=== PATIENT | male | born 1960 | race Caucasian/White ===

== ENCOUNTER → 2020-08-27 12:51 | Outpatient (CLI) | payer MEDICARE, SELFPAY ==
[2020-05-31 05:42] VITALS: BMI 26.2
--- NOTE | 2020-08-27 13:20 | RAD_ITS ---
STUDY: X-RAY CHEST REASON FOR EXAM: Male, 60 years old. SOB, hypoxia TECHNIQUE: PA and lateral views of the chest. COMPARISON: None. FINDINGS: Diffuse increased interstitial markings with areas of cartilage in both lower lobes suggestive of diffuse interstitial fibrosis and honeycombing. There is no demonstrated pleural abnormality. Sternal cerclage wires are present from a prior sternotomy. The patient is status post mitral valve replacement. A left-sided dual-chamber pacemaker is seen. Normal mediastinum and bria. Normal visualized pulmonary arteries. Normal visualized aortic arch and descending thoracic aorta. There are diffuse degenerative changes of the visualized thoracic spine. There is degenerative osteoarthritis of the bilateral shoulders. There is no demonstrated abnormality of the visualized soft tissue structures of the upper abdomen. RAD/Chest PA and Lateral IMPRESSION: Findings suggestive of a chronic interstitial fibrosis more prominent in the lower lobes. Electronically Signed: Graham Green, at 15:53 EDT , Service support ,
[2020-08-27 13:39] LABS: Hematocrit 52.3 % (40-54); Hemoglobin 16.1 g/dL (13.0-16.5); Mean Corp Hgb Conc 30.8 g/dL (32-36); Mean Corpuscular Hgb 30.6 pg (27.0-32.0); Mean Corpuscular Volume 99.2 fL (80-94); Mean Platelet Vol. 10.6 fl (6.2-12.0); Platelet Count 141 K/mm3 (150-450); RBC Distribution Width CV 14.5 % (11.6-14.6); RBC Distribution Width SD 53.3 fl (35.1-43.9); Red Blood Count 5.27 M/mm3 (4.6-6.2)
[2020-08-27 13:55] LABS: Base Excess -5 mmol/L (-2 to +2); Bicarbonate 20.3 mmol/L (22-26); Blood Gas Specimen Type ART; PO2 57 mmHG (75-100); SITE R Brach; SO2 90 % (95-99); Total Carbon Dioxide 21 mmol/L; pCO2 32.7 mmHg (35-45)
[2020-08-27 14:00] LABS: Anion Gap 8 (5-15); BUN 21 mg/dL (7-18); BUN/Creat Ratio 23.2 RATIO (10-20); Calcium,Total 9.4 mg/dL (8.5-10.1); Chloride 109 mmol/L (98-107); Creatinine, Serum 0.91 mg/dL (0.70-1.30); EST Glomerular Filtration Rate 90 mL/min (>60); Est Glom Filt Rate - Afr Amer 109 mL/min (>60); Glucose 85 mg/dL (74-106); Potassium 4.2 mmol/L (3.5-5.1); Sodium Level 139 mmol/L (136-145)
[2020-08-27 21:04] LABS: BNP,B-Type NATRIURETIC PEPTIDE 362.4 pg/mL (0-100)
== END ==
PROVIDERS: PCP Student in an Organized Health Care Education/Training Program; Referring Provider Nurse Practitioner Acute Care; Visit Provider Nurse Practitioner Acute Care
DX: R09.02 Hypoxemia (principal); R06.02 Shortness of breath
CPT/HCPCS: 36415; 36600; 71046; 80048; 82803; 83880; 85027